=== PATIENT | female | born 2000 | race Caucasian/White ===

== ENCOUNTER 2018-12-19 22:38 | Emergency (ER) | payer SELFPAY ==
[~2018-12-19] VITALS: Ht 170.2 cm; Wt 109.1 kg
[2018-12-20] MEDS ORDERED: NS 1,000 ML IV ONE (01:00)
[2018-12-20] MEDS ORDERED: ONDANSETRON 4MG/2ML VIAL (J2405) IV ONE (01:00)
[2018-12-20 01:28] LABS: BASO % 0.2 % (0.0-1.0); EOS % 0.2 % (0.0-3.0); LYMPH % 16.3 % (24.0-44.0); MEAN CORPUSCULAR HEMOGLOBIN 30.4 pg (27.0-33.0); MEAN CORPUSCULAR HGB CONC 33.3 g/dl (32.0-36.5); MEAN CORPUSCULAR VOLUME 91.3 fl (80.0-96.0); MONO % 5.2 % (0.0-5.0); NEUTROPHILS # 14.3 10^3/uL (1.8-7.7); NEUTROPHILS % 77.7 % (36.0-66.0); PLATELET COUNT, AUTOMATED 328 10^3/uL (150-450); RED BLOOD COUNT 4.27 10^6/uL (4.00-5.40); WHITE BLOOD COUNT 18.4 10^3/uL (4.0-10.0)
[2018-12-20 01:52] LABS: ALBUMIN 3.3 GM/DL (3.2-5.2); ALT/SGPT 34 U/L (12-78); BILIRUBIN,DIRECT 0.4 MG/DL (0.0-0.2); BILIRUBIN,TOTAL 1.8 MG/DL (0.2-1.0); BLOOD UREA NITROGEN 14 MG/DL (7-18); CALCIUM LEVEL 8.7 MG/DL (8.5-10.1); CARBON DIOXIDE LEVEL 29 MEQ/L (21-32); CHLORIDE LEVEL 103 MEQ/L (98-107); CREATININE FOR GFR 0.79 MG/DL (0.55-1.30); GLUCOSE, FASTING 88 MG/DL (70-100); HCG, SERUM QUALITATIVE NEGATIVE (NEGATIVE); LIPASE 65 U/L (73-393); POTASSIUM SERUM 4.1 MEQ/L (3.5-5.1); SODIUM LEVEL 140 MEQ/L (136-145)
--- NOTE | 2018-12-20 04:22 | REPVR ---
EXAM: US Pelvis Complete, Transabdominal EXAM DATE/TIME: 12/20/2018 2:49 AM CLINICAL HISTORY: 18 years old, female; Pelvic pain; Additional info: Adnexal pain TECHNIQUE: Imaging protocol: Real-time transabdominal pelvic ultrasound with image documentation. Complete exam. COMPARISON: No relevant prior studies available. FINDINGS: Uterus/cervix: The endometrium measures 3 mm transabdominal and 5 mm transvaginal. The uterus measures 8.0 cm in its cephalocaudad dimension and 3.6 x 4.9 cm in its AP and lateral dimensions transabdominal. The uterus measures 6.7 cm in its cephalocaudad dimension and 3.2 x 5.6 cm in its AP and lateral dimensions transvaginal. Right adnexa: The right ovary measures 2.4 x 3.2 x 1.9 cm and demonstrates blood flow. Left adnexa: The left ovary measures 2.5 x 1.4 x 2.3 cm and demonstrates normal blood flow. Free fluid: None. Bladder: The urinary bladder is within normal limits. IMPRESSION: Negative pelvic sonogram. Electronically signed by: Jez Gee On 12/20/2018 04:22:02 AM
[2018-12-20 04:33] LABS: CHLAMYDIA DNA AMPLIFICATION NEGATIVE (NEGATIVE); GC DNA AMPLIFICATION POSITIVE (NEGATIVE)
[2018-12-20] MEDS ORDERED: FLAG500T PO (04:34)
[2018-12-20] MEDS ORDERED: MAGNESIUM CITRATE 300 ML BTL PO ONE (04:45)
[2018-12-20] MEDS ORDERED: cefTRIAXone SOD 250 MG VIAL (J0696) IM ONE (04:45)
[2018-12-20] MEDS ORDERED: LIDOCAINE 1% SDV 5 ML VIAL DILUENT ONE (04:45)
[2018-12-20 05:03] VITALS: BP 118/64
--- NOTE | 2018-12-20 09:29 | REP ---
KUB: Two views. HISTORY: Constipation. FINDINGS: Bowel gas pattern is normal. There is formed stool in the transverse colon and rectum but no colonic distension is seen. Flank stripes are intact. Psoas margins are obscured. No mass organomegaly is seen. No pathologic calcification is noted. IMPRESSION: Normal bowel gas pattern. No radiographic evidence of obstipation. Electronically Signed by Edenilson Hutchinson MD 12/20/2018 11:36 A
== END 2018-12-20 05:05 | disposition home or self-care (01) ==
LOC: M ED 22:38
DX: A54.9 Gonococcal infection, unspecified (principal); N76.0 Acute vaginitis; K59.00 Constipation, unspecified; E66.01 Morbid (severe) obesity due to excess calories; J45.909 Unspecified asthma, uncomplicated; Z91.040 Latex allergy status
CPT/HCPCS: 74018; 76830; 76856; 80048; 80076; 81001; 81025; 83690; 84703; 85025; 87210; 87491; 87591; 93976; 96372; 96374; 99284; J0696; J2405

== ENCOUNTER 2019-08-07 09:21 | Emergency (ER) | payer SELFPAY ==
[~2019-08-07] VITALS: Ht 170.2 cm; Wt 120.5 kg
[~2019-08-07 09:21] MED LIST: FLAG500T PO
[2019-08-07] MEDS ORDERED: ALBUTEROL SULFATE 2.5 MG/0.5 ML INH NEB SOLN NEB STA (09:46)
[2019-08-07] MEDS ORDERED: NS 1,000 ML IV ONE (10:00)
[2019-08-07] MEDS ORDERED: methylPREDNISolone INJ 125 MG/2 ML VIAL (J2930) IV ONE (10:00)
[2019-08-07 10:10] LABS: BASO # 0.1 10^3/uL (0.0-0.2); BASO % 0.6 % (0.0-1.0); EOS # 0.4 10^3/uL (0.0-0.5); EOS % 2.9 % (0.0-3.0); HEMATOCRIT 40.6 % (36.0-47.0); HEMOGLOBIN 13.3 g/dl (12.0-15.5); LYMPH # 3.9 10^3/uL (1.5-5.0); MEAN CORPUSCULAR HEMOGLOBIN 29.5 pg (27.0-33.0); MEAN CORPUSCULAR HGB CONC 32.8 g/dl (32.0-36.5); MONO # 0.9 10^3/uL (0.0-0.8); MONO % 6.9 % (0.0-5.0); NEUTROPHILS # 7.4 10^3/uL (1.5-8.5); NEUTROPHILS % 58.2 % (36.0-66.0); PLATELET COUNT, AUTOMATED 336 10^3/uL (150-450); RED BLOOD COUNT 4.51 10^6/uL (4.00-5.40); WHITE BLOOD COUNT 12.6 10^3/uL (4.0-10.0)
[2019-08-07 11:05] LABS: ALBUMIN 3.5 GM/DL (3.2-5.2); ALT/SGPT 30 U/L (12-78); BILIRUBIN,DIRECT 0.1 MG/DL (0.0-0.2); BILIRUBIN,TOTAL 0.8 MG/DL (0.2-1.0); BLOOD UREA NITROGEN 12 MG/DL (7-18); CALCIUM LEVEL 8.6 MG/DL (8.5-10.1); CARBON DIOXIDE LEVEL 24 MEQ/L (21-32); CHLORIDE LEVEL 106 MEQ/L (98-107); CK-MB VALUE MASS < 1.0 NG/ML (<3.6); CPK CREATINE PHOSPHOKINASE 167 U/L (26-192); CREATININE FOR GFR 0.74 MG/DL (0.55-1.30); GLOMERULAR FILTRATION RATE > 60.0 (>60); GLUCOSE, FASTING 91 MG/DL (70-100); POTASSIUM SERUM 4.1 MEQ/L (3.5-5.1); SODIUM LEVEL 139 MEQ/L (136-145); TROPONIN I < 0.02 NG/ML (< 0.10)
[2019-08-07] MEDS ORDERED: ALBUTEROL SULFATE 2.5 MG/0.5 ML INH NEB SOLN NEB ONE ×2 (11:45→12:00)
--- NOTE | 2019-08-07 12:14 | REP ---
CHEST PA AND LATERAL: 08/07/2019. Clinical history: Dyspnea and cough. Findings: No prior studies. Lungs are well inflated without infiltrate, effusion, atelectasis or mass. The heart, mediastinal and hilar contours were grossly normal. The aorta and airway are intact. The bony thorax shows no focal lesion. No free air under the diaphragm. Impression: 1. No acute cardiopulmonary change. Electronically Signed by Amrik Harmon MD 08/07/2019 05:09 P
[2019-08-07] MEDS ORDERED: ALBUTEROL 90 MCG/ACT 8GM HFA INHALER INH ONE (13:15)
[2019-08-07] MEDS ORDERED: PRED20TA PO ×3 (13:32→15:08)
[2019-08-07 13:57] VITALS: BP 138/86
--- NOTE | 2019-08-07 15:45 | ECGEPIP ---
[facility] - ED Test Date: 2019-08-07 Pat Name: TIAN MCMAHON Department: Room: - Gender: Female [employer]: TC : 2000 Requested By: MELISSA Adams PA-C Order Number: [id number] Reading MD: Miranda Mckeon Measurements Intervals [place] Rate: 89 P: 28 CT: 152 QRS: -38 QRSD: 89 T: -1 QT: 371 QTc: 454 Interpretive Statements SINUS RHYTHM WITH OCCASIONAL VENTRICULAR PREMATURE COMPLEXES MARKED LEFT AXIS DEVIATION PATTERN CONSISTENT WITH PULMONARY DISEASE POSSIBLE RIGHT VENTRICULAR CONDUCTION DELAY No prior Electronically Signed on 08-07-2019 15:45:37 EST by Miranda Mckeon
== END 2019-08-07 13:57 | disposition home or self-care (01) ==
LOC: M ED 09:21
DX: J45.901 Unspecified asthma with (acute) exacerbation (principal); J98.01 Acute bronchospasm; Z91.040 Latex allergy status
CPT/HCPCS: 71046; 80048; 80076; 81001; 82550; 82553; 84484; 84702; 85025; 85379; 93005; 93041; 94640; 94760; 96361; 96374; 99285; J2930

== ENCOUNTER 2019-09-09 14:55 | Emergency (ER) | payer SELFPAY ==
[~2019-09-09] VITALS: Ht 172.7 cm; Wt 144.0 kg
[~2019-09-09 14:55] MED LIST changes: +PRED20TA PO
[2019-09-09] MEDS ORDERED: AUGM500T34 PO (17:36)
[2019-09-09] MEDS ORDERED: IBUP80TA PO (17:36)
[2019-09-09] MEDS ORDERED: AUGMENTIN 875 MG TAB PO ONE (17:45)
[2019-09-09 17:48] VITALS: BP 131/63
== END 2019-09-09 17:50 | disposition home or self-care (01) ==
LOC: M ED 14:55
DX: K04.7 Periapical abscess without sinus (principal); J45.909 Unspecified asthma, uncomplicated

== ENCOUNTER 2019-09-27 00:42 | Emergency (ER) | payer SELFPAY ==
[~2019-09-27] VITALS: Ht 170.2 cm; Wt 136.4 kg
[~2019-09-27 00:42] MED LIST changes: +AUGM500T34 PO; +IBUP80TA PO
[2019-09-27 01:23] LABS: HEMATOCRIT 40.2 % (36.0-47.0); HEMOGLOBIN 13.2 g/dl (12.0-15.5); MEAN CORPUSCULAR HEMOGLOBIN 29.6 pg (27.0-33.0); MEAN CORPUSCULAR HGB CONC 32.8 g/dl (32.0-36.5); MEAN CORPUSCULAR VOLUME 90.1 fl (80.0-96.0); PLATELET COUNT, AUTOMATED 410 10^3/uL (150-450); RED BLOOD COUNT 4.46 10^6/uL (4.00-5.40); WHITE BLOOD COUNT 11.8 10^3/uL (4.0-10.0)
[2019-09-27 01:49] LABS: AMPHETAMINES LEVEL URINE NEGATIVE (NEGATIVE); BARBITURATES URINE NEGATIVE (NEGATIVE); BENZODIAZEPINES URINE NEGATIVE (NEGATIVE); CANNABINOIDS URINE NEGATIVE (NEGATIVE); COCAINE METABOLITE URINE NEGATIVE (NEGATIVE); METHADONE URINE NEGATIVE (NEGATIVE); OPIATES URINE POSITIVE (NEGATIVE); PHENCYCLIDINE URINE NEGATIVE (NEGATIVE)
[2019-09-27 01:55] LABS: HCG, SERUM QUALITATIVE NEGATIVE (NEGATIVE)
[2019-09-27 01:58] LABS: ACETAMINOPHEN LEVEL < 2.0 UG/ML (10.0-30.0); ALBUMIN 3.7 GM/DL (3.2-5.2); ALT/SGPT 36 U/L (12-78); BILIRUBIN,DIRECT 0.2 MG/DL (0.0-0.2); BILIRUBIN,TOTAL 0.7 MG/DL (0.2-1.0); BLOOD UREA NITROGEN 8 MG/DL (7-18); CARBON DIOXIDE LEVEL 28 MEQ/L (21-32); CHLORIDE LEVEL 107 MEQ/L (98-107); CREATININE FOR GFR 0.82 MG/DL (0.55-1.30); ETHYL ALCOHOL (ETHANOL) < 0.003 % (0.000-0.010); GLOMERULAR FILTRATION RATE > 60.0 (>60); GLUCOSE, FASTING 108 MG/DL (70-100); POTASSIUM SERUM 4.4 MEQ/L (3.5-5.1); SALICYLATE LEVEL < 1.7 MG/DL (5.0-30.0); SODIUM LEVEL 142 MEQ/L (136-145); TOTAL PROTEIN 7.1 GM/DL (6.4-8.2)
[2019-09-27] MEDS ORDERED: ALEV220T22 PO (03:18)
[2019-09-27] MEDS ORDERED: IBUP-1720 PO (03:18)
[2019-09-27 05:26] VITALS: BP 132/89
== END 2019-09-27 05:26 | disposition home or self-care (01) ==
LOC: M ED 00:42
DX: Z04.6 Encounter for general psychiatric examination, requested by authority (principal); Z60.9 Problem related to social environment, unspecified; Z63.8 Other specified problems related to primary support group; Z79.899 Other long term (current) drug therapy; Z91.030 Bee allergy status; Z91.040 Latex allergy status; Z91.048 Other nonmedicinal substance allergy status
CPT/HCPCS: 36415; 80048; 80076; 80307; 84443; 84703; 85027; 99284; G0480